=== PATIENT | female | born 1985 | race African-American/Black ===

== ENCOUNTER 2017-09-01 01:56 | Inpatient (IN) | payer OTHER ==
[~2017-09-01] VITALS: Ht 170.2 cm; Wt 86.8 kg
[2017-09-01 02:53] LABS: PLATELET COUNT 359 K/uL (156-360)
[2017-09-01 03:01] LABS: HEMATOCRIT 28.5 % (36.0-46.0); HEMOGLOBIN 10.1 G/DL (11.9-15.5); MCH 30.7 PG (29.0-34.0); MCHC 35.4 G/DL (30.0-36.0); MCV 86.6 FL (83-99); RBC DIS.WIDTH-CV 12.4 % (11.8-14.6); RBC DIS.WIDTH-SD 39.6 % (39-53); RED BLOOD COUNT 3.29 M/uL (3.80-5.20)
[2017-09-01 03:06] LABS: WHITE BLOOD COUNT 36.5 K/uL (4.1-10.2)
[2017-09-01 03:58] LABS: ALBUMIN 3.3 g/dL (3.2-4.8)
[2017-09-01 03:59] LABS: CHLORIDE 92 mEq/L (99-109); SODIUM 134 mEq/L (136-147)
[2017-09-01 04:01] LABS: GLUCOSE 148 mg/dL (70-99); TOTAL PROTEIN 8.5 g/dL (6.4-8.3)
[2017-09-01 04:03] LABS: TOTAL BILIRUBIN 3.1 mg/dL (0.0-1.0)
[2017-09-01 04:04] LABS: ALKALINE PHOSPHATASE 253 IU/L (3-129)
[2017-09-01 04:05] LABS: CREATININE 1.1 mg/dL (0.6-1.3); GFR ESTIMATE (CALCULATED) > 59 mL/min/
[2017-09-01 04:06] LABS: AST (GOT) 48 IU/L (2-34); UREA NITROGEN (BUN) 9 mg/dL (9-23)
[2017-09-01 04:08] LABS: ALT (GPT) 60 IU/L (3-49); LIPASE 8 U/L (1.0-51.0)
[2017-09-01 04:14] LABS: QUANTITATIVE HCG < 4.0 MIU/ML
[2017-09-01 04:43] LABS: BASOPHIL (%) 0.2 % (0-1); BASOPHIL COUNT 0.1 K/uL (0-0.1); EOSINOPHIL (%) 0 % (0-5); IMMATURE GRANULOCYTE (%) 2.8 % (0.0-0.7); MONOCYTE (%) 8.4 % (3-12); MONOCYTE COUNT 2.8 K/uL (0-0.8); NEUTROPHIL (%) 82.6 % (45-76); NEUTROPHIL COUNT 27.6 K/uL (1.8-6.4); PLATELET COUNT 327 K/uL (156-360)
[2017-09-01 04:46] LABS: HEMATOCRIT 27.5 % (36.0-46.0); HEMOGLOBIN 9.7 G/DL (11.9-15.5); MCH 30.5 PG (29.0-34.0); MCHC 35.3 G/DL (30.0-36.0); MCV 86.5 FL (83-99); RBC DIS.WIDTH-CV 12.3 % (11.8-14.6); RBC DIS.WIDTH-SD 39.1 % (39-53); RED BLOOD COUNT 3.18 M/uL (3.80-5.20); WHITE BLOOD COUNT 33.4 K/uL (4.1-10.2)
[2017-09-01 04:53] LABS: INTER. NORMALIZED RATIO 1.9
[2017-09-01 04:56] LABS: PTT 28.4 SEC (25-37)
[2017-09-01 05:08] LABS: TROP-I INTERPRETATION NEGATIVE; TROPONIN-I < 0.01 ng/mL (0.0-0.30)
[2017-09-01 06:08] LABS: APPEARANCE CLOUDY ((CLEAR)); BILIRUBIN MODERATE; BLOOD MODERATE; COLOR AMBER ((YELLOW)); GLUCOSE (STRIP) NEGATIVE; KETONES NEGATIVE; LEUKOCYTES MODERATE; NITRITE NEGATIVE; PROTEIN (STRIP) 100; SPECIFIC GRAVITY 1.017 (1.000-1.030)
[2017-09-01 06:13] LABS: ICTOTEST ND
[2017-09-01 06:33] LABS: BACTERIA 3+ /HPF; EPITHELIAL CELLS 2+ /HPF; RED BLOOD CELLS TNTC /HPF (0-5); UCUL ADDED? YES; WHITE BLOOD CELLS TNTC /HPF (0-5)
[2017-09-01 06:36] LABS: MUCUS NONE SEEN /LPF
[2017-09-01] MEDS ORDERED: IBUPROFEN600 MG PO (07:28)
[2017-09-01] MEDS ORDERED: ACETAMINOPHEN325 M1 PO (07:29)
[2017-09-01 13:45] VITALS: BP 121/64
[2017-09-01 16:55] LABS: MONOSPOT (MONONUCLEOSIS SEROL) NEGATIVE
[2017-09-01 19:51] VITALS: BP 117/68
[2017-09-02 00:39] VITALS: BP 110/64
[2017-09-02 03:34] VITALS: BP 117/56
[2017-09-02 08:10] VITALS: BP 127/53
[2017-09-02 09:05] LABS: BASOPHIL (%) 0.2 % (0-1); EOSINOPHIL (%) 0.1 % (0-5); HEMATOCRIT 23.5 % (36.0-46.0); IMMATURE GRANULOCYTE (%) 1.7 % (0.0-0.7); LYMPHOCYTE (%) 10.5 % (15-42); LYMPHOCYTE COUNT 1.9 K/uL (1.0-2.8); MONOCYTE (%) 9.4 % (3-12); MONOCYTE COUNT 1.7 K/uL (0-0.8); NEUTROPHIL (%) 78.1 % (45-76); NEUTROPHIL COUNT 13.9 K/uL (1.8-6.4); PLATELET COUNT 309 K/uL (156-360); RBC DIS.WIDTH-CV 12.9 % (11.8-14.6); RBC DIS.WIDTH-SD 41.2 % (39-53); RED BLOOD COUNT 2.67 M/uL (3.80-5.20); WHITE BLOOD COUNT 17.9 K/uL (4.1-10.2)
[2017-09-02 09:39] LABS: ALBUMIN 2.5 G/DL (3.2-4.8); ALKALINE PHOSPHATASE 168 IU/L (3-129); ALT (GPT) 33 IU/L (3-49); AST (GOT) 22 IU/L (2-34); CHLORIDE 102 MEQ/L (99-109); CREATININE 0.8 MG/DL (0.6-1.3); GFR ESTIMATE (CALCULATED) > 59 mL/min/; POTASSIUM 3.2 MEQ/L (3.7-5.4); SODIUM 139 MEQ/L (136-147); TOTAL BILIRUBIN 2.2 MG/DL (0.0-1.0); TOTAL PROTEIN 5.8 G/DL (6.4-8.3); UREA NITROGEN (BUN) 8 mg/dL (9-23)
[2017-09-02 09:40] LABS: GLUCOSE 108 mg/dL (70-99)
[2017-09-02 11:31] LABS: HEPATITIS C ANTIBODY Nonreactive
[2017-09-02 11:32] LABS: HIV-1/2 AB/AG COMBO Nonreactive
[2017-09-02 11:35] VITALS: BP 112/67
[2017-09-02 12:01] LABS: HEPATITIS B SURFACE ANTIBODY REACTIVE
[2017-09-02 14:20] VITALS: BP 113/58
[2017-09-02 19:47] VITALS: BP 118/62
[2017-09-03] VITALS (7 sets, daily range): BP systolic 110–120; BP diastolic 52–70
[2017-09-03 07:13] LABS: HEMATOCRIT 22.8 % (36.0-46.0); HEMOGLOBIN 7.8 G/DL (11.9-15.5); MCHC 34.2 G/DL (30.0-36.0); MCV 87.7 FL (83-99); PLATELET COUNT 308 K/uL (156-360); RBC DIS.WIDTH-CV 12.8 % (11.8-14.6); RBC DIS.WIDTH-SD 41.1 % (39-53); WHITE BLOOD COUNT 13.8 K/uL (4.1-10.2)
[2017-09-03 07:37] LABS: CHLORIDE 101 MEQ/L (99-109); CREATININE 0.8 MG/DL (0.6-1.3); GFR ESTIMATE (CALCULATED) > 59 mL/min/; GLUCOSE 92 mg/dL (70-99); POTASSIUM 3.3 MEQ/L (3.7-5.4); SODIUM 140 MEQ/L (136-147); UREA NITROGEN (BUN) 6 mg/dL (9-23)
[2017-09-03 08:18] LABS: MAGNESIUM 1.6 mg/dl (1.3-2.7)
[2017-09-03 18:56] LABS: Cytomegalovirus IgM Antibody+ <30.00 AU/mL (<30.00)
[2017-09-04 06:15] LABS: MCH 29.2 PG (29.0-34.0); MCHC 33.3 G/DL (30.0-36.0); MCV 87.6 FL (83-99); PLATELET COUNT 359 K/uL (156-360); RBC DIS.WIDTH-CV 12.9 % (11.8-14.6); RBC DIS.WIDTH-SD 40.9 % (39-53); RED BLOOD COUNT 2.74 M/uL (3.80-5.20); WHITE BLOOD COUNT 12.2 K/uL (4.1-10.2)
[2017-09-04 06:40] LABS: CHLORIDE 104 MEQ/L (99-109); CREATININE 0.7 MG/DL (0.6-1.3); GFR ESTIMATE (CALCULATED) > 59 mL/min/; GLUCOSE 98 mg/dL (70-99); POTASSIUM 3.5 MEQ/L (3.7-5.4); SODIUM 141 MEQ/L (136-147); UREA NITROGEN (BUN) 8 mg/dL (9-23)
[2017-09-04 08:25] VITALS: BP 116/63
[2017-09-04] MEDS ORDERED: BACTRIM,SEPT1 TABLET PO (11:07)
== END 2017-09-04 13:57 | disposition home or self-care (01) | DRG 872 ==
LOC: EME 01:56 → 2EASTP 05:58 → EDOF 05:58 → ENRESERV 06:05 → 2EASTP 13:42
PROVIDERS: Emergency Medicine; Internal Medicine; Internal Medicine Infectious Disease
DX: A41.9 Sepsis, unspecified organism (principal); R65.20 Severe sepsis without septic shock; N10 Acute pyelonephritis; R74.0 Nonspecific elevation of levels of transaminase and lactic acid dehydrogenase [LDH]; E87.6 Hypokalemia; R79.1 Abnormal coagulation profile; Z87.891 Personal history of nicotine dependence
CPT/HCPCS: 71250; 74176; 80048; 80053; 81003; 83605; 83690; 83735; 84484; 84702; 85025; 85027; 85610; 85730; 86308; 86644 90; 86645 90; 86664; 86665; 86706; 86803; 87040; 87077; 87086; 87186; 87389; 87801; 93005; 99281; 99285; J0696; J1650; J1885; J2405; J2543; J7030; J7050; S0028